=== PATIENT | male | born 1990 | race Native Hawaiian/Other Pacific Islander ===

== ENCOUNTER 2022-12-07 09:37 | Emergency (ER) | payer OTHER ==
--- NOTE | 2022-12-07 09:41 | ERPHSYRPT ---
- History of Present Illness Time Seen by Provider: 12/07/22 09:41 Source: patient Exam Limitations: no limitations Physician History: This is a 32-year-old white male patient who presents with left eye redness and swelling. He has never had any like this before. He denies any injury to the eye. He denies any flulike symptoms prior to this finding this morning. He woke up with red and swollen left eye with clear tearing. He has not been exposed anybody with flulike symptoms. Timing/Duration: today Location: left eye Severity: mild Apparent Injury: no Associated Symptoms: redness, other (Tearing of clear fluid), No matting, No foreign body sensation Visual Assistive Devices: Glasses Chemical Exposure: No Trauma: No Welding Arc/Tanning Bed Exposure: No Allergies/Adverse Reactions: No Known Drug Allergies Allergy (Unverified 12/07/22 09:55) Travel Risk - International Travel Have you traveled outside of the country in past 3 weeks: No - Coronavirus Screening Are you exhibiting any of the following symptoms?: No Close contact with a COVID-19 positive Pt in past 14-21 Days: No - Review of Systems Constitutional: No Symptoms Eyes: Discharge (Clear fluid discharge left eye), Eye Redness (Mild conjunctivi tis left eye), Tearing, No Vision Changes, No Double Vision, No Foreign Body Sensation Ears, Nose, & Throat: No Symptoms Respiratory: No Symptoms Cardiac: No Symptoms Abdominal/Gastrointestinal: No Symptoms Genitourinary Symptoms: No Symptoms Musculoskeletal: No Symptoms Skin: No Symptoms Neurological: No Symptoms Psychological: No Symptoms Endocrine: No Symptoms Hematologic/Lymphatic: No Symptoms Immunological/Allergic: No Symptoms All Other Systems: Reviewed and Negative - Past Medical History Pertinent Past Medical History: No - Nursing Vital Signs Nursing Vital Signs: Initial Vital Signs Temperature 97.6 F 12/07/22 09:55 Pulse Rate 85 12/07/22 09:55 Respiratory Rate 18 12/07/22 09:55 Blood Pressure 162/99 12/07/22 09:55 O2 Sat by Pulse Oximetry 98 12/07/22 09:55 Pain Scale Pain Intensity 1 - Physical Exam General Appearance: no apparent distress, alert Vision Acuity Left Eye: 20/50 Eye Exam: right eye: normal inspection, left eye: conjunctival inflammation (Left side with associated edema), bilateral eye: PERRL, EOMI Ears, Nose, Throat Exam: normal ENT inspection, moist mucous membranes, tonsillar exudate Neck Exam: normal inspection, non-tender, supple Respiratory Exam: airway intact, No chest tenderness, No respiratory distress Cardiovascular Exam: regular rate/rhythm, normal heart sounds, normal peripheral pulses Gastrointestinal Exam: soft, normal bowel sounds, No tenderness Extremity Exam: normal inspection, normal range of motion, pelvis stable Neurologic: alert, oriented x 3, cooperative, machinery mover II-XII nml as tested, normal mood/affect, nml cerebellar function, nml station & gait, sensation nml Skin Exam: normal color, warm, dry Lymphatic: No adenopathy SpO2 Interpretation: normal O2 Delivery: Room Air Ordered Tests: Medication Summary Generic Name Dose Route Start Last Admin Trade Name Freq PRN Reason Stop Dose Admin Neomycin/Polymyxin/Hydrocortisone 0 ml 12/07/22 10:30 Neomy Sulf/Polymyx B Sulf/Hc 7.5 Ml Bottle OP 01/06/23 10:29 Q4H PRN PRN REDNESS/IRRITATION Discontinued Medications Generic Name Dose Route Start Last Admin Trade Name Freq PRN Reason Stop Dose Admin Diphenhydramine HCl 50 mg 12/07/22 10:27 Diphenhydramine Hcl 25 Mg Capsule PO 12/07/22 10:28 STAT ONE Prednisone 20 mg 12/07/22 10:27 Prednisone 20 Mg Tablet PO 12/07/22 10:28 STAT ONE - Progress Progress: unchanged Progress Note: 12/07/22 10:13 This patient's medical issue is 1 of low complexity. The level of complexity in the work-up performed is based on the patient's past medical history, review of the patient's medication list, review of the patient's drug allergy list, history of present illness and physical examination findings. Patient does not require any laboratory studies or radiographic studies. It appears the patient has chemosis. There is only slight injection of the conjunctiva on the left. However there does appear to have some edema and swelling of the conjunctiva on the left. There is no significant change in his vision. There is no significant pain present. We will place an antibiotic/steroid eyedrops into the left eye here in the emergency department and provide him with both Benadryl orally and 20 mg of prednisone orally. We will attempt to make an outpatient appointment with an [facility] to be seen within the next 3 to 5 days. Patient will be told to return to the emergency department if symptoms worsen. Counseled pt/family regarding: diagnosis, need for follow-up Medical Desision Making - Diagnostic Testing Diagnostic test were ordered, analyzed, and reviewed by me: No - Risk of complications The pt has a mod risk of morbidity or mortality based on: Need for prescription drug management - Departure Departure Disposition: Home Clinical Impression: Chemosis of left conjunctiva Condition: Stable Critical Care Time: No Additional Instructions: Use the eyedrops as prescribed. In addition, take Benadryl 25 to 50 mg orally every 8 hours for the next 5 days. Follow-up with the [facility] consultant at your scheduled appointment date and time. You are scheduled to see Dr. Brewer who is an [facility] consultant. His address is [address] [place] [address] in [place], [place]. Your appointment date and time is November at 10 AM. Be there approximately 9:45 AM. Prescriptions: Donald/Poly/Hc Eye Drops [Cortisporin Eye Drops] 2 drops OP Q4HWA #7.5 ml
[2022-12-07] MEDS ORDERED: DELTASONE 20 MG PO ONE (10:27)
[2022-12-07] MEDS ORDERED: BENADRYL 25 MG CAPSULE PO ONE (10:27)
[2022-12-07] MEDS ORDERED: Cortisporin Eye Drops OP PRN (10:30)
[2022-12-07] MEDS ORDERED: DELTASONE 20 MG ONE (10:38)
[2022-12-07] MEDS ORDERED: Cortisporin Eye Drops OP ONE (10:38)
[2022-12-07] MEDS ORDERED: BENADRYL 25 MG CAPSULE ONE (10:38)
[2022-12-07 10:47] VITALS: BP 138/98; PULSE 80; O2SAT 96
== END 2022-12-07 10:57 | disposition home or self-care (01) ==
LOC: ED 09:37
DX: H11.422 Conjunctival edema, left eye (principal)
CPT/HCPCS: 99282; A9270-GY